=== PATIENT | female | born 1985 | race Two or more races ===

== ENCOUNTER 2024-08-18 19:18 | Emergency (ER) | payer MEDICAID, SELFPAY ==
[2024-08-18 19:18] VITALS: BMI 30.7
[2024-08-18 19:27] VITALS: BP 141/95; PULSE 68; RESP 18; TEMP 36.9; O2SAT 98
--- NOTE | 2024-08-18 19:33 | XR_ITS ---
Examination: CT brain head without contrast. 2-D sagittal coronal reconstructions Date and time of exam:August 18, 2024 2111 hrs. Indications: Headaches beginning one week ago, patient fell one week ago CTDI: vol (mGy):52.6 DLP: (mGycm):1112 Technique: Multiple CT axial sections of the brain have been obtained, 5 mm slice thickness. Contrast has not been administered. 2-D sagittal, coronal reconstructions have been obtained Low dose protocols were performed. One or more of the following dose reduction techniques were used; automated exposure control, adjustment of the mA and/or KV according to patient size, use of iterative reconstruction technique. Findings: No significant ventricular enlargement. Intra-axial or extra-axial hemorrhage density is not seen. No mass effect or midline shift Basal cisterns are not remarkable. Fourth ventricle is midline. Cranial vault intact. Impression: Negative for acute hemorrhage, mass effect or midline shift
--- NOTE | 2024-08-18 19:33 | EKG_ITS ---
[facility] Test Date: 2024-08-18 Pat Name: Shavonne Amato Department: Room: - Gender: Female Research Tech: : [id number] Requested By: Daniel Parada Order Number: [id number] Reading MD: Daniel Parada Measurements Intervals [place] Rate: 66 P: 12 OH: 155 QRS: 38 QRSD: 78 T: 51 QT: 378 QTc: 399 Interpretive Statements SINUS RHYTHM Compared to ECG 01/23/2023 18:10:45 No significant changes /store/S0/[id number]/ecg/[id number].pdf
--- NOTE | 2024-08-18 19:33 | XR_ITS ---
Examination: PA chest single view Technique: Upright PA chest single view Exam date and time: August 18, 2024 1915 hrs. Indications: Chest pain shortness of breath today. Findings: Normal heart size Lungs are clear. The osseous structures are intact Impression: No active disease
--- NOTE | 2024-08-18 19:34 | PD.EDRME ---
Rapid Medical Screening Exam [facility] Arrival date/time: 08/18/24 19:18 39F with no significant PMH presents to ED with 1 week of worsening LIRIANO. There was then possible syncope according to . Patient has some CP because got scared and started pushing on her chest, hence then CP. Chief Complaint: Shortness of Breath/Dyspnea Vital signs: Vital Signs Temperature 98.5 F 08/18/24 19:27 Pulse Rate 68 08/18/24 19:27 Respiratory Rate 18 08/18/24 19:27 Blood Pressure 141/95 H 08/18/24 19:27 Pulse Oximetry (%) 98 08/18/24 19:27 Oxygen Delivery Method Room Air 08/18/24 19:27
[2024-08-18 20:10] LABS: Basophils % (Auto) 0 % (0-2.5); Eosinophils # (Auto) 0.2 Thou/mm3 (0.0-0.5); Eosinophils % (Auto) 2 % (0-10); Hematocrit 40.3 % (36.0-46.0); Hemoglobin 13.1 g/dL (12.0-16.0); Immature Granulocytes % (Auto) 0 % (0-0); Immature Granulocytes Auto 0.03 Thou/mm3 (0.00-0.00); Lymphocytes # (Auto) 3.1 Thou/mm3 (1.0-4.8); Lymphocytes % (Auto) 29 % (10-50); Mean Corpuscular HGB Conc 32.5 g/dl (31.0-37.0); Mean Corpuscular Hemoglobin 27.2 pg (25.0-35.0); Mean Corpuscular Volume 84 fL (80-100); Monocytes # (Auto) 0.7 Thou/mm3 (0.0-0.8); Monocytes % (Auto) 6 % (0-12); Neutrophils # (Auto) 6.9 Thou/mm3 (1.8-7.7); Neutrophils % (Auto) 63 % (37-80); Nucleated Red Blood Cell % 0 /100 WBC (0); Platelet Count 287 Thou/mm3 (140-440); RDW Standard Deviation 43.6 fL (36.4-46.3); Red Blood Count 4.82 Miln/mm3 (4.00-5.20); White Blood Count 10.9 Thou/mm3 (3.6-11.0)
[2024-08-18 20:21] LABS: Alanine Aminotransferase 82 U/L (10-49); Albumin, Serum 4.3 gm/dL (3.5-5.0); Albumin/Globulin Ratio 1.4 (1.2-2.2); Alkaline Phosphatase 90 U/L (46-116); Anion Gap 4 (7-16); Aspartate Amino Transferase 39 U/L (0-34); BUN/Creatinine Ratio 20 Ratio (12-20); Bilirubin,Total 0.4 mg/dL (0.3-1.2); Blood Urea Nitrogen 12 mg/dL (9-23); Calcium 9.6 mg/dL (8.3-10.6); Calcium (Corrected) 9.6 mg/dL (8.5-10.1); Carbon Dioxide 23.9 mMol/L (20.0-31.0); Chloride 108 mMol/L (98-107); Creatinine (Component) 0.6 mg/dL (0.6-1.3); Estimated Creatinine Clearance 137.3 mL/min (>60); Globulin 3.1 gm/dL (2.3-3.5); Glucose 104 mg/dL (74-106); Osmolality,Calculated 271 (275-295); Sodium 136 mMol/L (136-145); Total Protein 7.4 gm/dL (5.7-8.2); Troponin I < 0.002 ng/mL (0.0-0.045); eGFR > 60 See Note
[2024-08-18 20:23] LABS: Collection Type, Urine Clean Catch
[2024-08-18 20:28] LABS: HCG Qualitative,Urine Negative
[2024-08-18 20:52] LABS: Bilirubin,Urine Negative (Negative); Blood,Urine Negative (Negative); Clarity,Urine Clear (Clear/Hazy); Color,Urine Lt-Yellow (Lt Yel-Yel); Glucose, Urine Negative (Negative); Ketones,Urine Negative (Negative); Leukocyte Esterase,Urine Negative (Negative); Nitrite,Urine Negative (Negative); PH,Urine 6.5 (5.0-7.0); Protein,Urine Negative (Neg - Trace); RBC,Urine 1 /hpf (0-3); Specific Gravity,Urine 1.018 (1.001-1.035); Squamous Epithelial Cell,Urine 5 /hpf (0-5); Urobilinogen,Urine Negative mg/dL (0.0-1.0); WBC,Urine 1 /hpf (0-5)
[2024-08-18 21:52] LABS: Amphetamine/Methamp Scrn,U Negative (Negative); Barbiturate Screen,Urine Negative (Negative); Benzodiazepines Screen,Urine Negative (Negative); Benzoylecgonine Screen, Ur Negative (Negative); Fentanyl Screen,Urine Negative (Negative); Opiate Screen,Urine Negative (Negative); THC Screen,Urine Negative (Negative)
[2024-08-18 22:25] VITALS: BP 135/76; PULSE 71; RESP 18; TEMP 36.7; O2SAT 98
--- NOTE | 2024-08-19 01:39 | EDNOTE_ITS ---
ED SOB =RME/HPI General Chief Complaint: Shortness of Breath/Dyspnea Stated Complaint: SOB, CP X20MIN Time Seen by Provider: 08/19/24 01:42 Arrival date/time: 08/18/24 19:18 Limitations: no limitations RME / HPI RME / HPI Narrative: 08/18/24 19:18 39F with no significant PMH presents to ED with 1 week of worsening LIRIANO. There was then possible syncope according to . Patient has some CP because got scared and started pushing on her chest, hence then CP. ------ Dr. Shankar's Main ED Evaluation: 39yo female with a history of migraines presents to the ED for a chief complaint of a headache x 5 days. Patient states she was previously treated for migraines in [place] 3 years ago, but has not been treated since. She states her headache is towards the top of her head and has been progressively getting worse. She endorses taking ibuprofen without any improvement. She reports associated nausea, dizziness, and lightheadedness. She denies any vision changes or any other associated symptoms. No known allergies. PCP: [facility] Related Data Previous Rx's ?Medication ?Instructions ?Recorded vmekxrcybv-ydlhsaessqbia-yvqchpve 1 cap PO Q6H PRN headache #20 caps 01/23/23 50 mg-300 mg-40 mg capsule (Fioricet) ibuprofen 600 mg tablet 600 mg PO Q6H PRN pain #30 tabs 01/23/23 ondansetron HCl 4 mg tablet 4 mg PO Q6H PRN nausea and 01/23/23 vomiting #10 tabs naproxen 500 mg tablet 500 mg PO BID PRN pain #30 tabs 04/04/23 fluconazole 150 mg tablet 150 mg PO Q3D 2 doses #2 tabs 04/30/23 (Diflucan) naproxen 500 mg tablet 500 mg PO BID PRN pain #30 tabs 07/31/23 benzocaine 20%-menthol 0.5 %-Zn 1 ea .Route TID PRN toothache #7 11/15/23 0.15 %-benzalkonium 0.13 % mucosal grams gel (Orajel 4X Toothache-Gum) diphenhydramine HCl 25 mg capsule 25 mg PO TID PRN headache 7 days 08/19/24 (Allergy (diphenhydramine)) #20 caps metoclopramide HCl 5 mg tablet 5 mg PO BID PRN headache 10 days 08/19/24 (Reglan) #20 tabs Allergies Allergy/AdvReac Type Severity Reaction Status Date / Time No Known Allergies Allergy Verified 08/18/24 19:21 Review of Systems Review of Systems Systems Reviewed: All systems reviewed, normal except as documented Past Medical History Social History SMOKING STATUS: Never smoker SUBSTANCE USE: does not use ED Exam General Limitations: Present no limitations General appearance: Present alert and in no apparent distress Head Head exam: Present atraumatic Eye Eye exam: Present normal appearance, PERRL and EOMI ENT ENT exam: Present normal exam, normal oropharynx and mucous membranes moist Neck Neck exam: Present normal inspection, full ROM and trachea midline Chest Chest inspection: Present normal inspection and symmetric chest wall rise Respiratory Respiratory exam: Present normal lung sounds bilaterally Cardiovascular Cardiovascular exam: Present regular rate, normal rhythm and normal heart sounds Abdominal Exam Abdominal exam: Present soft and normal bowel sounds Extremities Exam Extremities exam: Present normal inspection and full ROM Back Exam Back exam: Present normal inspection and full ROM Neurological Exam Neurological exam: Present alert, oriented X3, CN II-XII intact and other (normal finger-nose, normal sensation) Psychiatric Psychiatric exam: Present normal affect and normal mood Skin Skin exam: Present warm, dry, intact and normal color Course Course Course Narrative: CXR is ordered for determining the etiology of lightheadedness. Quality Measures none Orders Category Date Time Status EKG (ED ONLY) *Do not use* NOW Care 08/18/24 19:[address] head/brain wo con Stat Exams 08/18/24 19:33 Completed EKG (ED Only) Stat Exams 08/18/24 19:33 Draft XR chest 1V portable Stat Exams 08/18/24 19:33 Completed CBC Stat Lab 08/18/24 19:42 Completed Comprehensive Metabolic Panel Stat Lab 08/18/24 19:42 Completed Drug Screen,Urine Stat Lab 08/18/24 20:05 Completed HCG Qualitative,Urine Stat Lab 08/18/24 20:05 Completed Troponin I Stat Lab 08/18/24 19:42 Completed Urinalysis Stat Lab 08/18/24 20:05 Completed DiphenhydrAMINE [Benadryl] Med 08/19/24 01:42 Discontinued 25 mg PO X1 ONE Metoclopramide [Reglan] Med 08/19/24 01:42 Discontinued 10 mg PO X1 ONE Vital Signs Vital signs: Vital Signs Temperature 98.5 F 08/18/24 19:27 Pulse Rate 68 08/18/24 19:27 Respiratory Rate 18 08/18/24 19:27 Blood Pressure 141/95 H 08/18/24 19:27 Pulse Oximetry (%) 98 08/18/24 19:27 Oxygen Delivery Method Room Air 08/18/24 19:27 Pulse ox is 98% on room air, which is normal according to my interpretation. Shortness of Breath / Dyspnea Patient data External records reviewed:: [facility] previous records (Per chart review, patient was seen here on 04/04/23 for a headache.) Clinical information provided by:: patient Social determinants that could affect healthcare access:: none Patient has the following chronic illnesses:: migraines How is presenting disease/condition affected by chronic disease/condition?: caused by Evaluation data The following diagnostics were reviewed and interpreted by me:: lab results, radiology exam(s) and EKG tracing(s) Lab and/or radiology exams considered but not ordered:: none Interpretation Summary: CBC is normal, CMP is normal, troponin is normal, HCG is negative, UA is unremarkable, UDS is negative, according to my interpretation. CXR is negative for any cardiomegaly, CHF, infiltrates, or pleural effusions, according to my interpretation. EKG done at 1938, sinus rhythm, rate of 66, normal intervals, normal axis, no acute ST or T-wave changes, no STEMI, similar to previous EKG done in 01/2023, according to my interpretation. ----- I have personally reviewed the radiology data and agree with the radiologist's interpretation below: [facility] Report Signed Patient: Shavonne Amato. Record#: [id number] Birthdate: 1985 Age/Sex: 39 / F Location: [facility] Attending Dr: Ordering Physician: Daniel Parada PA-C Date of Service: 08/18/24 Procedure(s): CT head/brain wo con Accession Number(s): [id number] cc: Sukumar Woo MD; Caleb Restrepo MD; Daniel Parada PA-C~ Examination: CT brain head without contrast. 2-D sagittal coronal reconstructions Date and time of exam:August 18, 2024 2111 hrs. Indications: Headaches beginning one week ago, patient fell one week ago CTDI: vol (mGy):52.6 DLP: (mGycm):1112 Technique: Multiple CT axial sections of the brain have been obtained, 5 mm slice thickness. Contrast has not been administered. 2-D sagittal, coronal reconstructions have been obtained Low dose protocols were performed. One or more of the following dose reduction techniques were used; automated exposure control, adjustment of the mA and/or KV according to patient size, use of iterative reconstruction technique. Findings: No significant ventricular enlargement. Intra-axial or extra-axial hemorrhage density is not seen. No mass effect or midline shift Basal cisterns are not remarkable. Fourth ventricle is midline. Cranial vault intact. Impression: Negative for acute hemorrhage, mass effect or midline shift Dictated By: Caleb Restrepo MD Signed By: <Electronically signed by Caleb Restrepo MD in OV> 08/18/24 2149 Medications / Prescriptions Medications or Prescriptions considered but not ordered:: none Medication administrations:: Medication Administration History Discontinued Medications Diphenhydramine HCl (Diphenhydramine Elix 25 Mg/10 Ml Udc) 25 mg PO X1 ONE Stop: 08/19/24 01:43 Last Admin: 08/19/24 01:55 Dose: 25 mg Documented By: RACHNA Metoclopramide HCl (Metoclopramide 5 Mg Tablet) 10 mg PO X1 ONE Stop: 08/19/24 01:43 Last Admin: 08/19/24 01:55 Dose: 10 mg Documented By: RACHNA see above Consultations Consultation(s) initiated? (list below): No Diagnosis Shortness of Breath Differential Diagnosis: other (chronic migraine, tumor, mass, ICH, electrolyte abnormality, drug use) Most likely diagnosis given after review of the tests above:: see above Admission Indicated Admission indicated?: not indicated Admission Request Was there a request for admission?: No Disposition Plan Disposition Plan: Discharge Discharge Attestation Discharge Attestation: The patient and all family members were given an opportunity to ask questions and understood the discharge instructions. Discharge instructions specifically effects, indications for sooner follow up or return to the emergency department, and the expected course of current diagnosis. Patient condition: Stable Discharge Plan Plan Patient Disposition: HOME (Self Care) Patient condition on transfer: Stable Prescriptions/Referrals Prescriptions/Med Rec: New metoclopramide HCl [Reglan] 5 mg tablet 5 mg PO BID PRN (Reason: headache) 10 Days Qty: 20 0RF diphenhydramine HCl [Allergy (diphenhydramine)] 25 mg capsule 25 mg PO TID PRN (Reason: headache) 7 Days Qty: 20 0RF Rx Instructions: No driving with Reglan and Benadryl No Action ondansetron HCl 4 mg tablet 4 mg PO Q6H PRN (Reason: nausea and vomiting) Qty: 10 0RF ibuprofen 600 mg tablet 600 mg PO Q6H PRN (Reason: pain) Qty: 30 0RF cnrxaovtcs-rwxielxfzauvb-seye [Fioricet] 50-300-40 mg capsule 1 cap PO Q6H PRN (Reason: headache) Qty: 20 0RF fluconazole [Diflucan] 150 mg tablet 150 mg PO Q3D Qty: 2 0RF Rx Instructions: may repeat second dose 72 hrs after first dose if symptoms persist Orajel 4X Toothache-Gum 20-0.5-0.15 % gel 1 ea .Route TID PRN (Reason: toothache) Qty: 7 0RF Rx Instructions: PRN naproxen 500 mg tablet 500 mg PO BID PRN (Reason: pain) Qty: 30 0RF naproxen 500 mg tablet 500 mg PO BID PRN (Reason: pain) Qty: 30 0RF Referrals: Sukumar Woo MD [Primary Care Provider] - In 1 week Problem List Clinical Impression: Headache, migraine, intractable, with status migrainosus Patient/Caregiver Discharge Instructions Education Materials: ED Headache, Migraine, Classic Additional Instructions: Please go back to your primary care physician so that you can get a referral to neurology if needed. Take the medications as prescribed. No driving, mechanical equipment, swimming alone or alcohol while using Benadryl and/or Reglan. Return for worsening symptoms or any other concerns. Print Language: [place] Stand Alone Forms: [employer] Award Info., Patient Portal Info Letter
[2024-08-19] MEDS: METOCLOPRAMIDE 5 MG TABLET 10 MG PO (01:55)
[2024-08-19] MEDS: DiphenhydrAMINE ELIX 25 MG/10 ML UDC PO (01:55)
== END 2024-08-19 01:57 | disposition home or self-care (01) ==
PROVIDERS: Physician Assistant; Emergency Provider Emergency Medicine; PCP Family Medicine
DX: G43.911 Migraine, unspecified, intractable, with status migrainosus (principal); R07.9 Chest pain, unspecified
CPT/HCPCS: 36415; 70450; 71045; 80053; 80307; 81001; 81025; 84484; 85025; 93005; 99284; A9270

== ENCOUNTER 2024-11-26 05:56 | Emergency (ER) | payer MEDICAID, SELFPAY ==
[2024-11-26 05:57] VITALS: BMI 30.2
[2024-11-26 06:03] VITALS: BP 120/79; PULSE 76; RESP 16; TEMP 36.8; O2SAT 97
--- NOTE | 2024-11-26 06:09 | XR_ITS ---
Examination: CT abdomen and pelvis without contrast. Coronal 3-D reconstructions. Sagittal 2-D reconstructions. Date and time of exam:November 26, 2024 at 0714 hrs. Indications: Generalized abdominal pain and diarrhea beginning today CTDI: vol (mGy): 9.62 DLP: (mGycm): 540 Technique: Axial images of the abdomen have been obtained, 3 mm slice thickness Intravenous contrast material has not been administered. Low dose protocols were performed. One or more of the following dose reduction techniques were used; automated exposure control, adjustment of the mA and/or KV according to patient size, use of iterative reconstruction technique. Findings: Diffuse fatty infiltration throughout the liver Contracted gallbladder Spleen is not enlarged No pancreatic or adrenal mass 3 mm upper pole nonobstructing left renal calculus, no hydronephrosis or ureteral calculi Aorta normal size Normal appendix 8mm fat-containing umbilical hernia No bowel obstruction No diverticulitis Intact urinary bladder The osseous structures are intact Impression: 3 mm upper pole nonobstructing left renal calculus, no hydronephrosis or ureteral calculi Normal appendix No bowel obstruction diverticulitis or free air
--- NOTE | 2024-11-26 06:10 | EDNOTE_ITS ---
ED Abdominal Pain RME/HPI General Chief Complaint: Abdominal Pain Stated complaint: ABD PAIN Time seen by provider: 11/26/24 06:07 Arrival date/time: 11/26/24 05:56 39-year-old female with no known medical history presents to the emergency room with a chief complaint of 10 out of 10 lower abdominal pain x 2 days Source: patient Mode of arrival: ambulatory Limitations: no limitations Related Data Previous Rx's ?Medication ?Instructions ?Recorded oegofuqhsb-ksryorzrzjmzi-xllkyfnb 1 cap PO Q6H PRN hea dache #20 caps 01/23/23 50 mg-300 mg-40 mg capsule (Fioricet) ibuprofen 600 mg tablet 600 mg PO Q6H PRN pain #30 t abs 01/23/23 ondansetron HCl 4 mg tablet 4 mg PO Q6H PRN nausea and 01/23/23 vomiting #10 tabs naproxen 500 mg tablet 500 mg PO BID PRN pain #30 t abs 04/04/23 fluconazole 150 mg tablet 150 mg PO Q3D 2 doses #2 tab s 04/30/23 (Diflucan) naproxen 500 mg tablet 500 mg PO BID PRN pain #30 t abs 07/31/23 benzocaine 20%-menthol 0.5 %-Zn 1 ea .Route TID PRN to othache #7 11/15/23 0.15 %-benzalkonium 0.13 % mucosal grams gel (Orajel 4X Toothache-Gum) Allergies Allergy/AdvReac Type Severity Reaction Status Date / Time No Known Allergies Allergy Verified 11/26/24 05:56 Review of Systems Review of Systems Systems Reviewed: All systems reviewed, normal except as documented Constitutional Constitutional: Reports system reviewed and no additional complaints, except as documented, Denies fatigue, Denies fever(s), Denies headache(s) and Denies weakness Eyes Eyes: Reports system reviewed and no additional complaints, except as documented, Denies blurry vision and Denies change in vision ENT Ears, Nose, Mouth, and Throat: Reports system reviewed and no additional complaints, except as documented, Denies otalgia, Denies headache(s), Denies nasal congestion, Denies throat swelling and Denies vertigo Cardiovascular Cardiovascular: Reports system reviewed and no additional complaints, except as documented, Denies chest pain, Denies dyspnea and Denies dyspnea on exertion Respiratory Respiratory: Reports system reviewed and no additional complaints, except as documented, Denies chest congestion, Denies cough, Denies dyspnea, Denies dyspnea on exertion and Denies wheezing Gastrointestinal Gastrointestinal: Reports system reviewed and no additional complaints, except as documented, Reports abdominal pain, Reports cramping, Reports nausea and Denies vomiting Genitourinary Genitourinary: Reports system reviewed and no additional complaints, except as documented Musculoskeletal Musculoskeletal: Reports system reviewed and no additional complaints, except as documented and Denies back pain Integumentary/Breasts Skin/Breast: Reports system reviewed and no additional complaints, except as documented and Denies wounds Neurologic Neurologic: Reports system reviewed and no additional complaints, except as documented, Denies confusion, Denies headache(s), Denies lack of coordination, Denies vertigo and Denies weakness Psychiatric Psychiatric: Reports system reviewed and no additional complaints, except as documented, Denies anxiety, Denies confusion, Denies depression, Denies paranoia, Denies suicidal ideation and Denies tactile hallucinations Endocrine Endocrine: Reports system reviewed and no additional complaints, except as documented and Denies fatigue Hematologic/Lymphatic Hematologic/Lymphatic: Reports system reviewed and no additional complaints, except as documented and Denies lymphadenopathy Allergic/Immunologic Allergic/Immunologic: Reports system reviewed and no additional complaints, except as documented, Denies throat swelling, Denies urticaria and Denies wheezing Past Medical History Social History SMOKING STATUS: Never smoker SUBSTANCE USE: does not use ED Exam General Limitations: Present no limitations General appearance: Present alert and in no apparent distress Head Head exam: Present atraumatic Eye Eye exam: Present normal appearance, PERRL and EOMI ENT ENT exam: Present normal exam, normal oropharynx and mucous membranes moist Neck Neck exam: Present normal inspection, full ROM and trachea midline Chest Chest inspection: Present normal inspection and symmetric chest wall rise Respiratory Respiratory exam: Present normal lung sounds bilaterally Cardiovascular Cardiovascular exam: Present regular rate, normal rhythm and normal heart sounds Abdominal Exam Abdominal exam: Present soft, tenderness, normal bowel sounds and tenderness at McBurney's Point; Absent Rollins's sign Abdominal tenderness: Present RLQ, LLQ and moderate Extremities Exam Extremities exam: Present normal inspection and full ROM Back Exam Back exam: Present normal inspection and full ROM Neurological Exam Neurological exam: Present alert, oriented X3 and CN II-XII intact Psychiatric Psychiatric exam: Present normal affect and normal mood Skin Skin exam: Present warm, dry, intact and normal color Course Quality Measures none Orders Category Date Time Status CT abdomen pelvis wo con Stat Exams 11/26/24 06:09 Completed CBC Stat Lab 11/26/24 06:45 Completed CMP [Comprehensive Metabolic Panel] Stat Lab 11/26/24 06:45 Completed HCG Qualitative,Urine Stat Lab 11/26/24 06:38 Completed Lipase Stat Lab 11/26/24 06:45 Completed UA [Urinalysis] Stat Lab 11/26/24 06:38 Completed Urine Culture Stat Lab 11/26/24 06:38 Received mg Hyd/Al Hyd/Brandy Susp [Maalox Susp] Med 11/26/24 06:09 Discontinued 30 ml PO X1 ONE Vital Signs Vital signs: Vital Signs Temperature 98.3 F 11/26/24 06:03 Pulse Rate 76 11/26/24 06:03 Respiratory Rate 16 11/26/24 06:03 Blood Pressure 120/79 11/26/24 06:03 Pulse Oximetry (%) 97 11/26/24 06:03 Oxygen Delivery Method Room Air 11/26/24 06:03 O2 saturation 97% within normal limits Abdominal Pain MDM MDM Narrative MDM Narrative:: 39-year-old female with no known medical history presents to the emergency room with a chief complaint of 10 out of 10 lower abdominal pain x 2 days Patient is hemodynamically stable and in no apparent distress Physical examination shows 10 out of 10 lower umbilical tenderness with palpation. There is no tenderness to the right upper quadrant there is a negative Rollins sign. There is some moderate right lower quadrant and left lowe r quadrant abdominal tenderness. CT of the abdomen and pelvis was completed and was negative for any acute findings. CBC CMP UA were all negative. Patient was given medication and states there was improvement in her symptoms. Patient was discharged and educated to follow-up with primary care provider and return to the emergency room for any evidence of worsening signs or symptoms Patient data External records reviewed:: [facility] previous records Clinical information provided by:: patient Social determinants that could affect healthcare access:: none Patient has the following chronic illnesses:: No chronic illness How is presenting disease/condition affected by chronic disease/condition?: no chronic disease Evaluation data The following diagnostics were reviewed and interpreted by me:: lab results and radiology exam(s) Lab and/or radiology exams considered but not ordered:: Labs and radiology exams considered and ordered Interpretation Summary: CT abdomen and pelvis- Medications / Prescriptions Medications or Prescriptions considered but not ordered:: Medication given Medication administrations:: Medication Administration History Discontinued Medications Al Hydrox/Mg Hydrox/Simethicone (Mg Hyd/Al Hyd/Brandy (Maalox Reg) Susp 30 Ml Udc) 30 ml PO X1 ONE Stop: 11/26/24 06:10 Last Admin: 11/26/24 06:16 Dose: 30 ml Documented By: Medication given Consultations Consultation(s) initiated? (list below): No Diagnosis Differential diagnosis abdominal pain: abdominal pain, acute appendicitis, constipation, diverticulitis, gastroenteritis, small bowel obstruction and other (Gastritis) Most likely diagnosis given after review of the tests above:: Gastritis Admission Indicated Admission indicated?: not indicated Admission Request Was there a request for admission?: No Disposition Plan Disposition Plan: Discharge Discharge Attestation Discharge Attestation: The patient and all family members were given an opportunity to ask questions and understood the discharge instructions. Discharge instructions specifically effects, indications for sooner follow up or return to the emergency department, and the expected course of current diagnosis. Patient condition: Stable Discharge Plan Plan Patient Disposition: HOME (Self Care) Disposition Comment: Stable Prescriptions/Referrals Prescriptions/Med Rec: No Action ondansetron HCl 4 mg tablet 4 mg PO Q6H PRN (Reason: nausea and vomiting) Qty: 10 0RF ibuprofen 600 mg tablet 600 mg PO Q6H PRN (Reason: pain) Qty: 30 0RF ybmtfocbgm-dcyxyyevamffb-jwmj [Fioricet] 50-300-40 mg capsule 1 cap PO Q6H PRN (Reason: headache) Qty: 20 0RF fluconazole [Diflucan] 150 mg tablet 150 mg PO Q3D Qty: 2 0RF Rx Instructions: may repeat second dose 72 hrs after first dose if symptoms persist Orajel 4X Toothache-Gum 20-0.5-0.15 % gel 1 ea .Route TID PRN (Reason: toothache) Qty: 7 0RF Rx Instructions: PRN naproxen 500 mg tablet 500 mg PO BID PRN (Reason: pain) Qty: 30 0RF naproxen 500 mg tablet 500 mg PO BID PRN (Reason: pain) Qty: 30 0RF Referrals: No Primary/Family,Physician [Primary Care Provider] - In 1 week Problem List Clinical Impression: Gastritis Patient/Caregiver Discharge Instructions Education Materials: Treating Gastritis, Anatomy of the Digestive System, ED Gastritis (Adult) Additional Instructions: [place] un seguimiento con hardy proveedor de atenci?n primaria en las pr?ximas 24 a 48 horas. Se complet? tiffanie tomograf?a computarizada de hardy abdomen y pelvis y fue negativa para cualquier hallazgo robin. No hubo nada robin en hardy an?lisis de cr ni en hardy orina. Si hay evidencia de signos o s?ntomas que empeoran, regrese a la estelita de emergencias de inmediato. Print Language: [place] Stand Alone Forms: [employer] Award Info., Work/School Release, Patient Portal Info Letter [employer] Supervising Physician [employer] Supervising Physician: Dr. Montgomery
[2024-11-26] MEDS: MG HYD/AL HYD/SIME (Maalox Reg) SUSP 30 ML UDC PO (06:16)
[2024-11-26 06:51] LABS: Collection Type, Urine Clean Catch
[2024-11-26 07:05] LABS: Basophils % (Auto) 0 % (0-2.5); Eosinophils % (Auto) 0 % (0-10); Hematocrit 39.5 % (36.0-46.0); Hemoglobin 12.9 g/dL (12.0-16.0); Immature Granulocytes % (Auto) 0 % (0-0); Immature Granulocytes Auto 0.05 Thou/mm3 (0.00-0.00); Lymphocytes # (Auto) 2.6 Thou/mm3 (1.0-4.8); Lymphocytes % (Auto) 20 % (10-50); Mean Corpuscular HGB Conc 32.7 g/dl (31.0-37.0); Mean Corpuscular Hemoglobin 26.4 pg (25.0-35.0); Mean Corpuscular Volume 81 fL (80-100); Monocytes # (Auto) 0.8 Thou/mm3 (0.0-0.8); Monocytes % (Auto) 7 % (0-12); Neutrophils # (Auto) 9.4 Thou/mm3 (1.8-7.7); Neutrophils % (Auto) 73 % (37-80); Nucleated Red Blood Cell % 0 /100 WBC (0); Platelet Count 369 Thou/mm3 (140-440); RDW Standard Deviation 40.4 fL (36.4-46.3); Red Blood Count 4.89 Miln/mm3 (4.00-5.20); White Blood Count 12.8 Thou/mm3 (3.6-11.0)
[2024-11-26 07:15] LABS: Alanine Aminotransferase 133 U/L (10-49); Albumin, Serum 4.3 gm/dL (3.5-5.0); Albumin/Globulin Ratio 1.3 (1.2-2.2); Alkaline Phosphatase 100 U/L (46-116); Anion Gap 7 (7-16); Aspartate Amino Transferase 54 U/L (0-34); BUN/Creatinine Ratio 19 Ratio (12-20); Bilirubin,Total 0.4 mg/dL (0.3-1.2); Blood Urea Nitrogen 13 mg/dL (9-23); Calcium 9.4 mg/dL (8.3-10.6); Calcium (Corrected) 9.4 mg/dL (8.5-10.1); Carbon Dioxide 23.7 mMol/L (20.0-31.0); Chloride 106 mMol/L (98-107); Creatinine (Component) 0.7 mg/dL (0.6-1.3); Estimated Creatinine Clearance 109.8 mL/min (>60); Globulin 3.3 gm/dL (2.3-3.5); Glucose 131 mg/dL (74-106); Lipase 51 U/L (12-53); Osmolality,Calculated 275 (275-295); Potassium 4.2 mMol/L (3.4-5.1); Sodium 137 mMol/L (136-145); Total Protein 7.6 gm/dL (5.7-8.2); eGFR > 60 See Note
[2024-11-26 07:27] LABS: Bilirubin,Urine Negative (Negative); Blood,Urine Negative (Negative); Clarity,Urine Clear (Clear/Hazy); Color,Urine Lt-Yellow (Lt Yel-Yel); Glucose, Urine Negative (Negative); Ketones,Urine Negative (Negative); Leukocyte Esterase,Urine Negative (Negative); Nitrite,Urine Negative (Negative); Protein,Urine Trace (Neg - Trace); RBC,Urine 3 /hpf (0-3); Squamous Epithelial Cell,Urine 4 /hpf (0-5); Urobilinogen,Urine Negative mg/dL (0.0-1.0); WBC,Urine 1 /hpf (0-5)
[2024-11-26 07:41] LABS: HCG Qualitative,Urine Negative
[2024-11-26 08:08] VITALS: BP 111/74; PULSE 65; RESP 16; TEMP 36.8; O2SAT 97
== END 2024-11-26 08:36 | disposition home or self-care (01) ==
PROVIDERS: Nurse Practitioner Family; Emergency Provider Emergency Medicine
DX: K29.70 Gastritis, unspecified, without bleeding (principal)
CPT/HCPCS: 36415; 74176; 80053; 81001; 81025; 83690; 85025; 87086; 99284; A9270

== ENCOUNTER 2025-05-25 20:48 | Emergency (ER) | payer SELFPAY ==
[2025-05-25 20:48] VITALS: BMI 33.8
[2025-05-25 21:51] VITALS: BP 145/87; PULSE 57; RESP 16; TEMP 37.2; O2SAT 97
[2025-05-25] MEDS: HYDROcodone/APAP 5/325 TABLET 1 TAB PO (23:52)
--- NOTE | 2025-05-26 00:53 | EDNOTE_ITS ---
ED Dental RME/HPI General Chief complaint: Dental/Oral/Throat Stated complaint: TOOTHACHE Time Seen by Provider: 05/25/25 23:48 Arrival date/time: 05/25/25 20:48 40F with no significant PMH presents to ED with R lower dental pain. Patient knows she needs a root canal there, but is still waiting to see dentist. Patient is currently on ABX. Limitations: no limitations Related Data Previous Rx's ?Medication ?Instructions ?Recorded gktckqzttn-tpcapbygvxgzz-bczldvdg 1 cap PO Q6H PRN hea dache #20 caps 01/23/23 50 mg-300 mg-40 mg capsule (Fioricet) ibuprofen 600 mg tablet 600 mg PO Q6H PRN pain #30 t abs 01/23/23 ondansetron HCl 4 mg tablet 4 mg PO Q6H PRN nausea and 01/23/23 vomiting #10 tabs naproxen 500 mg tablet 500 mg PO BID PRN pain #30 t abs 04/04/23 fluconazole 150 mg tablet 150 mg PO Q3D 2 doses #2 tab s 04/30/23 (Diflucan) naproxen 500 mg tablet 500 mg PO BID PRN pain #30 t abs 07/31/23 benzocaine 20%-menthol 0.5 %-Zn 1 ea .Route TID PRN to othache #7 11/15/23 0.15 %-benzalkonium 0.13 % mucosal grams gel (Orajel 4X Toothache-Gum) Allergies Allergy/AdvReac Type Severity Reaction Status Date / Time No Known Allergies Allergy Verified 11/26/24 05:56 Review of Systems Review of Systems Systems Reviewed: All systems reviewed, normal except as documented Constitutional Constitutional: Reports system reviewed and no additional complaints, except as documented, Denies fever(s) and Denies headache(s) ENT Ears, Nose, Mouth, and Throat: Reports dental pain, Denies disequilibrium and Denies headache(s) Cardiovascular Cardiovascular: Reports system reviewed and no additional complaints, except as documented, Denies chest pain and Denies dyspnea Respiratory Respiratory: Reports system reviewed and no additional complaints, except as documented, Denies cough and Denies dyspnea Gastrointestinal Gastrointestinal: Reports system reviewed and no additional complaints, except as documented, Denies abdominal pain, Denies nausea and Denies vomiting Neurologic Neurologic: Reports system reviewed and no additional complaints, except as documented, Denies confusion, Denies disequilibrium and Denies headache(s) Psychiatric Psychiatric: Denies confusion Past Medical History Social History SMOKING STATUS: Never smoker SUBSTANCE USE: does not use ED Exam General Limitations: Present no limitations General appearance: Present alert and in no apparent distress Head Head exam: Present atraumatic Eye Eye exam: Present normal appearance, PERRL and EOMI ENT ENT exam: Present normal oropharynx and mucous membranes moist Expanded ENT Exam Teeth exam: Present fractured tooth # (31/32) Neck Neck exam: Present normal inspection, full ROM and trachea midline Chest Chest inspection: Present normal inspection and symmetric chest wall rise Respiratory Respiratory exam: Present normal lung sounds bilaterally Cardiovascular Cardiovascular exam: Present regular rate, normal rhythm and normal heart sounds Abdominal Exam Abdominal exam: Present soft and normal bowel sounds Extremities Exam Extremities exam: Present normal inspection and full ROM Back Exam Back exam: Present normal inspection and full ROM Neurological Exam Neurological exam: Present alert, oriented X3 and CN II-XII intact Psychiatric Psychiatric exam: Present normal affect and normal mood Skin Skin exam: Present warm, dry, intact and normal color Course Quality Measures none Orders Category Date Time Status HYDROcodone*/APAP 5/325 [[place] 5/325] Med 05/25/25 23:49 Discontinued 1 tab PO X1 ONE Vital Signs Vital signs: Vital Signs Temperature 99.0 F 05/25/25 21:51 Pulse Rate 57 L 05/25/25 21:51 Respiratory Rate 16 05/25/25 21:51 Blood Pressure 145/87 H 05/25/25 21:51 Pulse Oximetry (%) 97 05/25/25 21:51 Oxygen Delivery Method Room Air 05/25/25 21:51 O2 at 97% on RA and WNLs Dental / Oral MDM Narrative MDM Narrative:: 40F with no significant PMH presents to ED with R lower dental pain. Patient knows she needs a root canal there, but is still waiting to see dentist. Patient is currently on ABX. Physical exam reveals R lower chipped teeth. No gingival swelling or facial swelling. Patient is afebrile, calm, and alert. Meds and in house counsel given. Patient data External records reviewed:: [facility] previous records Clinical information provided by:: patient Social determinants that could affect healthcare access:: none Patient has the following chronic illnesses:: none How is presenting disease/condition affected by chronic disease/condition?: no chronic disease Evaluation data The following diagnostics were reviewed and interpreted by me:: other (specify) (none) Lab and/or radiology exams considered but not ordered:: not ordered Interpretation Summary: n/a Medications / Prescriptions Medications or Prescriptions considered but not ordered:: ordered Medication administrations:: Medication Administration History Discontinued Medications Hydrocodone Bitart/Acetaminophen (Hydrocodone/Apap 5/325 Tablet) 1 tab PO X1 ONE Stop: 05/25/25 23:50 Last Admin: 05/25/25 23:52 Dose: 1 tab Documented By: [email or web address] above Consultations Consultation(s) initiated? (list below): No Diagnosis Dental Differential Diagnosis: gingival abscess, dental caries, toothache, dental abscess, fracture of tooth and aphthous ulcer Most likely diagnosis given after review of the tests above:: toothache Admission Indicated Admission indicated?: not indicated Admission Request Was there a request for admission?: No Disposition Plan Disposition Plan: Discharge Discharge Attestation Discharge Attestation: The patient and all family members were given an opportunity to ask questions and understood the discharge instructions. Discharge instructions specifically effects, indications for sooner follow up or return to the emergency department, and the expected course of current diagnosis. Patient condition: Stable Discharge Plan Plan Patient Disposition: HOME (Self Care) Discharge Disposition comment: Stable Prescriptions/Referrals Prescriptions/Med Rec: No Action ondansetron HCl 4 mg tablet 4 mg PO Q6H PRN (Reason: nausea and vomiting) Qty: 10 0RF ibuprofen 600 mg tablet 600 mg PO Q6H PRN (Reason: pain) Qty: 30 0RF vyxkyzfhva-eadoseznoanfq-jmxd [Fioricet] 50-300-40 mg capsule 1 cap PO Q6H PRN (Reason: headache) Qty: 20 0RF fluconazole [Diflucan] 150 mg tablet 150 mg PO Q3D Qty: 2 0RF Rx Instructions: may repeat second dose 72 hrs after first dose if symptoms persist Orajel 4X Toothache-Gum 20-0.5-0.15 % gel 1 ea .Route TID PRN (Reason: toothache) Qty: 7 0RF Rx Instructions: PRN naproxen 500 mg tablet 500 mg PO BID PRN (Reason: pain) Qty: 30 0RF naproxen 500 mg tablet 500 mg PO BID PRN (Reason: pain) Qty: 30 0RF Problem List Clinical Impression: Toothache Patient/Caregiver Discharge Instructions Education Materials: ED Dental Pain Additional Instructions: Please follow-up with PCP within 24-48 hours and return immediately if symptoms worsen. See dentist soon. Print Language: Faroese Stand Alone Forms: Patient Portal Info Letter PA/ENTOMOLOGY TEACHER Supervising Physician PA/ENTOMOLOGY TEACHER Supervising Physician: Dr. Pike
== END 2025-05-25 23:57 | disposition home or self-care (01) ==
PROVIDERS: Emergency Provider Emergency Medicine
DX: K08.89 Other specified disorders of teeth and supporting structures (principal); S02.5XXA Fracture of tooth (traumatic), initial encounter for closed fracture; X58.XXXA Exposure to other specified factors, initial encounter
CPT/HCPCS: 99282; A9270